=== PATIENT | female | born 1955 | race Caucasian/White ===

== ENCOUNTER 2016-08-18 11:58 | Inpatient (IN) | payer BC ==
[2016-08-18] VITALS (7 sets, daily range): BP systolic 112–168; BP diastolic 58–83
[~2016-08-18] VITALS: Ht 162.6 cm; Wt 81.4 kg
[~2016-08-18 11:58] MED LIST: ADVIL,NUPRIN,M200 MG PO; ALEVE220 MG PO; ASA PO; B COMPLEX #11 EACH PO; CELEBREX200 MG PO; CENTRUM SILV1 TABLE1 PO; COLACE100 MG PO; GLUCOSAMINE1000 MG PO; IRON325 M1 PO; MACROBID100 MG PO; Milk Of Magnesia,MOM PO; OXYCODONE HCL5 MG PO; SYNTHROID50 MCG PO; TYLENOL EXTRA500 MG PO; Tylenol Extra Streng PO; ULTRAM50 MG PO; VITAMIN D31000 UNI2 PO; Vitamin D PO; XARELTO10 MG PO
[2016-08-18 13:21] LABS: HEMATOCRIT 24.8 % (36.0-46.0); MCH 29.7 PG (29.0-34.0); MCHC 32.3 G/DL (30.0-36.0); MCV 92.2 FL (83-99); MEAN PLAT.VOLUME 9.4 uM^3 (9.5-12.4); PLATELET COUNT 187 K/uL (156-360); RBC DIS.WIDTH-CV 14.3 % (11.8-14.6); RBC DIS.WIDTH-SD 48.3 % (39-53); RED BLOOD COUNT 2.69 M/uL (3.80-5.20); WHITE BLOOD COUNT 7.3 K/uL (4.1-10.2)
[2016-08-18 13:28] LABS: CHLORIDE 109 mEq/L (99-109); POTASSIUM 3.8 mEq/L (3.7-5.4); SODIUM 141 mEq/L (136-147)
[2016-08-18 13:30] LABS: GLUCOSE 112 mg/dL (70-99); INTER. NORMALIZED RATIO 1.1; PROTHROMBIN TIME 10.8 (9.2-11.2); PTT 24.6 (25-32)
[2016-08-18 13:32] LABS: ANION GAP 5 MEQ/L (2-14); TOTAL BILIRUBIN 0.3 mg/dL (0.0-1.0)
[2016-08-18 13:34] LABS: ALKALINE PHOSPHATASE 47 IU/L (3-129); GFR ESTIMATE (CALCULATED) > 59 mL/min/
[2016-08-18 13:35] LABS: UREA NITROGEN (BUN) 24 mg/dL (9-23)
[2016-08-18 13:41] LABS: TROP-I INTERPRETATION NEGATIVE; TROPONIN-I < 0.01 ng/mL (0.0-0.30)
[2016-08-18 15:34] LABS: HEMATOCRIT 23.2 % (36.0-46.0); MCH 29.4 PG (29.0-34.0); MCHC 31.9 G/DL (30.0-36.0); MCV 92.1 FL (83-99); MEAN PLAT.VOLUME 9.7 uM^3 (9.5-12.4); PLATELET COUNT 185 K/uL (156-360); RBC DIS.WIDTH-CV 14.2 % (11.8-14.6); RBC DIS.WIDTH-SD 48.2 % (39-53); RED BLOOD COUNT 2.52 M/uL (3.80-5.20); WHITE BLOOD COUNT 6.2 K/uL (4.1-10.2)
[2016-08-18] MEDS ORDERED: AMLODIPINE BESYL5 MG PO (16:30)
[2016-08-18] MEDS ORDERED: ASCORBIC ACID500 M3 PO (16:31)
[2016-08-18] MEDS ORDERED: TUMERIC PO (16:31)
[2016-08-18] MEDS ORDERED: FISH OIL 1,0001 EAC7 PO (16:31)
[2016-08-18] MEDS ORDERED: MELOXICAM7.5 MG PO (16:31)
[2016-08-18] MEDS ORDERED: HYDROCHLOROTH12.5 M3 PO (16:33)
[2016-08-18 22:04] LABS: HEMATOCRIT 28.5 % (36.0-46.0); MCV 91.6 FL (83-99)
[2016-08-19 02:50] LABS: HEMATOCRIT 28.2 % (36.0-46.0); MCV 89.5 FL (83-99)
[2016-08-19 05:00] VITALS: BP 147/79
[2016-08-19 06:09] LABS: HEMATOCRIT 28.4 % (36.0-46.0); MCH 29.7 PG (29.0-34.0); MCHC 32.7 G/DL (30.0-36.0); MCV 90.7 FL (83-99); MEAN PLAT.VOLUME 9.8 uM^3 (9.5-12.4); PLATELET COUNT 177 K/uL (156-360); RBC DIS.WIDTH-CV 14.8 % (11.8-14.6); RBC DIS.WIDTH-SD 49.2 % (39-53); WHITE BLOOD COUNT 4.7 K/uL (4.1-10.2)
[2016-08-19 06:29] LABS: RED BLOOD COUNT 3.13 M/uL (3.80-5.20)
[2016-08-19 06:41] LABS: ANION GAP 5 MEQ/L (2-14); CHLORIDE 112 MEQ/L (99-109); GFR ESTIMATE (CALCULATED) > 59 mL/min/; GLUCOSE 91 mg/dL (70-99); POTASSIUM 3.7 MEQ/L (3.7-5.4); SAMPLE HEMOLYSIS CHECK 0; SAMPLE ICTERIC CHECK 0; SAMPLE LIPEMIA CHECK 0; SODIUM 144 MEQ/L (136-147); UREA NITROGEN (BUN) 11 mg/dL (9-23)
[2016-08-19 07:50] VITALS: BP 130/61
[2016-08-19 11:37] VITALS: BP 137/71
[2016-08-19 15:50] VITALS: BP 161/69
[2016-08-19 19:58] LABS: HEMATOCRIT 28.7 % (36.0-46.0); MCV 90.5 FL (83-99)
[2016-08-20 00:50] VITALS: BP 128/61
[2016-08-20 06:51] LABS: HEMATOCRIT 29.4 % (36.0-46.0); MCH 29.5 PG (29.0-34.0); MCHC 32.3 G/DL (30.0-36.0); MCV 91.3 FL (83-99); MEAN PLAT.VOLUME 10.8 uM^3 (9.5-12.4); PLATELET COUNT 197 K/uL (156-360); RBC DIS.WIDTH-CV 14.7 % (11.8-14.6); RBC DIS.WIDTH-SD 49.3 % (39-53); RED BLOOD COUNT 3.22 M/uL (3.80-5.20); WHITE BLOOD COUNT 3.7 K/uL (4.1-10.2)
[2016-08-20 07:15] LABS: ANION GAP 7 MEQ/L (2-14); CHLORIDE 108 MEQ/L (99-109); GFR ESTIMATE (CALCULATED) > 59 mL/min/; GLUCOSE 88 mg/dL (70-99); POTASSIUM 3.2 MEQ/L (3.7-5.4); SAMPLE HEMOLYSIS CHECK 0; SAMPLE ICTERIC CHECK 0; SAMPLE LIPEMIA CHECK 0; SODIUM 144 MEQ/L (136-147); UREA NITROGEN (BUN) 6 mg/dL (9-23)
[2016-08-20 07:53] VITALS: BP 151/70
[2016-08-20] MEDS ORDERED: PROTONIX40 MG PO (10:00)
[2016-08-20] MEDS ORDERED: KLOR-CON M2020 MEQ PO (10:09)
== END 2016-08-20 13:55 | disposition home or self-care (01) | DRG 378 ==
LOC: EME → EDBD 11:58 → EME 11:58 → 2EAST 16:38 → EDOF 16:38 → 2EAST 18:11
PROVIDERS: Emergency Medicine; Internal Medicine Gastroenterology; Physician Assistant
DX: K57.31 Diverticulosis of large intestine without perforation or abscess with bleeding (principal); K22.10 Ulcer of esophagus without bleeding; K55.9 Vascular disorder of intestine, unspecified; D64.9 Anemia, unspecified; K27.9 Peptic ulcer, site unspecified, unspecified as acute or chronic, without hemorrhage or perforation; I10 Essential (primary) hypertension; E03.9 Hypothyroidism, unspecified; E78.5 Hyperlipidemia, unspecified; M16.0 Bilateral primary osteoarthritis of hip; K44.9 Diaphragmatic hernia without obstruction or gangrene; Z96.643 Presence of artificial hip joint, bilateral; Z90.710 Acquired absence of both cervix and uterus; Z87.891 Personal history of nicotine dependence; Z87.11 Personal history of peptic ulcer disease; Z85.41 Personal history of malignant neoplasm of cervix uteri
CPT/HCPCS: 74177; 80053; 80069; 84484; 85014; 85018; 85027; 85610; 85730; 86900; 86901; 86920; 88305; 88342 TC; 93005; 99281; 99285; C9113; J2250; J3010; J7030; P9016

== ENCOUNTER 2016-08-22 07:10 | Emergency (ER) | payer BC ==
[~2016-08-22] VITALS: Ht 165.1 cm; Wt 80.6 kg
[~2016-08-22 07:10] MED LIST changes: +AMLODIPINE BESYL5 MG PO; +ASCORBIC ACID500 M3 PO; +FISH OIL 1,0001 EAC7 PO; +HYDROCHLOROTH12.5 M3 PO; +KLOR-CON M2020 MEQ PO; +MELOXICAM7.5 MG PO; +PROTONIX40 MG PO; +TURMERIC PO
[2016-08-22 07:59] LABS: EOSINOPHIL (%) 2.3 % (0-5); EOSINOPHIL COUNT 0.1 K/uL (0-0.3); HEMATOCRIT 25.9 % (36.0-46.0); IMMATURE GRANULOCYTE (%) 0.5 % (0.0-0.7); INSTRUMENT ABS NEUTROPHIL CT 3.4 K/uL; LYMPHOCYTE COUNT 0.7 K/uL (1.0-2.8); MCH 29.5 PG (29.0-34.0); MCV 92.2 FL (83-99); MEAN PLAT.VOLUME 10.1 uM^3 (9.5-12.4); MONOCYTE (%) 5.7 % (3-12); MONOCYTE COUNT 0.3 K/uL (0-0.8); NEUTROPHIL (%) 75.8 % (45-76); NEUTROPHIL COUNT 3.4 K/uL (1.8-6.4); PLATELET COUNT 207 K/uL (156-360); RBC DIS.WIDTH-CV 14.3 % (11.8-14.6); RBC DIS.WIDTH-SD 48.1 % (39-53); RED BLOOD COUNT 2.81 M/uL (3.80-5.20); WHITE BLOOD COUNT 4.4 K/uL (4.1-10.2)
[2016-08-22 08:38] LABS: ALKALINE PHOSPHATASE 49 IU/L (3-129); ANION GAP 7 MEQ/L (2-14); CHLORIDE 106 MEQ/L (99-109); GFR ESTIMATE (CALCULATED) > 59 mL/min/; SAMPLE HEMOLYSIS CHECK 0; SAMPLE ICTERIC CHECK 0; SAMPLE LIPEMIA CHECK 0; SODIUM 142 MEQ/L (136-147); TOTAL BILIRUBIN 0.3 MG/DL (0.0-1.0); UREA NITROGEN (BUN) 19 mg/dL (9-23)
[2016-08-22 08:47] LABS: GLUCOSE 113 mg/dL (70-99)
[2016-08-22 11:08] LABS: PROTHROMBIN TIME 10.5 (9.2-11.2); PTT 24.5 (25-32)
[2016-08-22] MEDS ORDERED: K-DUR20 MEQ PO (11:36)
[2016-08-22] MEDS ORDERED: PANTOPRAZOLE SO40 MG PO (11:37)
[2016-08-22] MEDS ORDERED: CENTRUM SILVER1 EAC3 PO (11:42)
[2016-08-22 11:57] LABS: ADD MIUA? YES; BILIRUBIN NEGATIVE; BLOOD MODERATE; GLUCOSE (STRIP) NEGATIVE; KETONES NEGATIVE; LEUKOCYTES SMALL; NITRITE POSITIVE; PROTEIN (STRIP) NEGATIVE; SPECIFIC GRAVITY 1.008 (1.000-1.030); UROBILINOGEN 0.2 MG/DL (0.2-1.0)
[2016-08-22 12:05] LABS: BACTERIA RARE /HPF; EPITHELIAL CELLS RARE /HPF; MUCUS TRACE /LPF; RED BLOOD CELLS 0-5 /HPF (0-5); UCUL ADDED? NO
[2016-08-22 12:07] LABS: ABSOLUTE RETICULOCYTE CT. 0.1 M/uL (0.02-0.08); IMM.RETIC FRACTION 25.4 % (3-19); RETICULOCYTE COUNT 2.6 % (0.5-1.8)
[2016-08-22 12:07] LABS: COLOR PALE YELLOW ((YELLOW))
[2016-08-22 13:54] VITALS: BP 142/63; BP 150/67
[2016-08-22 13:56] VITALS: BP 155/70
[2016-08-22 16:49] VITALS: BP 149/70
[2016-08-22 19:45] VITALS: BP 129/60
[2016-08-22 20:51] LABS: HEMATOCRIT 22.4 % (36.0-46.0); MCV 94.1 FL (83-99)
[2016-08-22 23:35] VITALS: BP 120/58
[2016-08-23] VITALS (12 sets, daily range): BP systolic 107–149; BP diastolic 53–76
[2016-08-23 09:51] LABS: HEMATOCRIT 30.7 % (36.0-46.0); MCV 91.4 FL (83-99)
[2016-08-23 20:17] LABS: HEMATOCRIT 31.1 % (36.0-46.0); MCV 92.6 FL (83-99)
[2016-08-24 07:16] VITALS: BP 121/78
[2016-08-24 09:25] LABS: HEMATOCRIT 29.7 % (36.0-46.0); MCV 93.4 FL (83-99)
[2016-08-24 12:08] VITALS: BP 130/60
[2016-09-22] MEDS ORDERED: MICROZIDE12.5 M1 PO (09:05)
[2016-09-22] MEDS ORDERED: FEROSUL325 MG PO (09:18)
[2016-09-22] MEDS ORDERED: EXTRA STRENGTH500 M1 PO (09:19)
[2016-09-22] MEDS ORDERED: BACTRIM,SEPT1 TABLET PO (09:20)
[2016-09-27] MEDS ORDERED: OXYCODONE HCL5 MG PO (07:55)
[2016-09-27] MEDS ORDERED: ELIQUIS2.5 MG PO (07:55)
== END 2016-08-24 16:45 | disposition home or self-care (01) ==
LOC: EME 07:10 → EDOF 10:16 → 5WEST 10:16
PROVIDERS: Internal Medicine; Nurse Practitioner Family
PROC: 30233N1 Transfusion of Nonautologous Red Blood Cells into Peripheral Vein, Percutaneous Approach (ICD-10-PCS; principal; 2016-08-22)
PROC: 0DB98ZX Excision of Duodenum, Via Natural or Artificial Opening Endoscopic, Diagnostic (ICD-10-PCS; 2016-08-23)
DX: K92.2 Gastrointestinal hemorrhage, unspecified (principal); K29.70 Gastritis, unspecified, without bleeding; K22.70 Barrett's esophagus without dysplasia; K44.9 Diaphragmatic hernia without obstruction or gangrene; D64.9 Anemia, unspecified; K57.30 Diverticulosis of large intestine without perforation or abscess without bleeding; Z98.890 Other specified postprocedural states; Z85.41 Personal history of malignant neoplasm of cervix uteri; Z92.21 Personal history of antineoplastic chemotherapy; Z92.3 Personal history of irradiation; E03.9 Hypothyroidism, unspecified; E78.5 Hyperlipidemia, unspecified; Z96.641 Presence of right artificial hip joint; Z88.2 Allergy status to sulfonamides; I10 Essential (primary) hypertension; M16.10 Unilateral primary osteoarthritis, unspecified hip; I47.1 Supraventricular tachycardia; Z87.891 Personal history of nicotine dependence
CPT/HCPCS: 80053; 81003; 82607; 82728; 82746; 85014; 85018; 85025; 85045; 85610; 85730; 86900; 86901; 86920; 88305; 99281; 99284; C9113; G0378; J1940; J2270; J7030; P9016